=== PATIENT | male | born 1970 | race Caucasian/White ===

== ENCOUNTER 2016-11-30 10:08 | Emergency (ER) | payer OTHER ==
[~2016-11-30 10:08] MED LIST: ERYTHROMYCIN O3.5 GM OD; FLEXERIL10 MG PO; HYDROCODON-ACE1 EAC7 PO; IBUPROFEN PO; MOTRIN400 MG PO; ORUDIS75 M1 PO; VICODIN 5/500 T1 TAB PO
[2016-11-30 10:48] LABS: BASOPHIL% 0.4 % (0-2.5); EOSINOPHIL% 0.4 % (0.0-7.0); LYMPHOCYTE# 1.2 X10e3 (1.0-3.5); LYMPHOCYTE% 18.7 % (17.0-45.0); MEAN CELL VOLUME 86.7 FL (83-96); MEAN CORPUSCULAR HEMOGLOBIN 29.7 PG (28-34); MEAN CORPUSCULAR HGB CONC 34.2 g/dL (30-36); MEAN PLATELET VOLUME 8.3 FL (6.5-11.5); MONOCYTE# 0.3 X10e3 (0-1.0); MONOCYTE% 5.2 % (3.0-12.0); NEUTROPHIL# 4.8 X10e3 (1.5-7.1); NEUTROPHIL% 75.3 % (40-75); PLATELET COUNT 213 X10e3 (140-420); RED BLOOD COUNT 4.73 X10e (3.90-5.60); WHITE BLOOD COUNT 6.4 X10e3 (4.0-10.5)
[2016-11-30 10:50] LABS: DIFF IND NO
[2016-11-30 11:13] LABS: ACETAMINOPHEN <10 ug/mL; ALBUMIN SERUM 3.6 g/dL (3.5-5.0); ALCOHOL BLOOD <5 mg/dL (0); ALKALINE PHOSPHATASE 80 U/L (32-92); ALT (SGPT) 22 U/L (10-40); AST (SGOT) 26 U/L (10-42); BILIRUBIN, DIRECT 0.2 mg/dL (0.0-0.2); BILIRUBIN,INDIRECT 0.8 mg/dL (0.0-0.9); BLOOD UREA NITROGEN 17 mg/dL (9-23); BUN/CREATININE RATIO 21.25; CALCIUM SERUM 8.9 mg/dL (8.4-10.2); CARBON DIOXIDE 28 mmol/L (22-31); CHLORIDE 97 mmol/L (100-111); CREATININE SERUM 0.8 mg/dL (0.6-1.4); GLOM FILT RATE Estimated 106.4 mL/min (>60); GLUCOSE FASTING 107 mg/dL (70-110); POTASSIUM 3.6 mmol/L (3.5-5.1); PROTEIN TOTAL SERUM 7.5 g/dL (6.0-8.3); SALICYLATE <4.0 mg/dL; SODIUM 136 mmol/L (135-145)
[2016-11-30 12:01] LABS: URINE SOURCE CLEAN CATCH
[2016-11-30 12:07] LABS: URINE APPEARANCE CLEAR; URINE BILIRUBIN NEG (NEG); URINE BLOOD NEG (NEG); URINE COLOR YELLOW; URINE GLUCOSE NEG (NEG); URINE KETONE 1+ (NEG); URINE LEUKOCYTE ESTERASE NEG (NEG); URINE NITRATE NEG (NEG); URINE PROTEIN TRACE (NEG); URINE SPECIFIC GRAVITY 1.018 (1.003-1.035)
[2016-11-30 12:11] LABS: CULTURE INDICATED? NO
[2016-11-30 16:33] LABS: AMPHETAMINE NEG (NEG); BARBITURATES NEG (NEG); BENZODIAZEPINES NEG (NEG); COCAINE NEG (NEG); MARIJUANA NEG (NEG); OPIATES POS (NEG); TRICYCLIC ANTIDEPRESSANTS NEG (NEG); U METHADONE NEG (NEG)
== END 2016-11-30 16:10 ==
LOC: CED 10:08
PROVIDERS: Emergency Medicine
DX: F11.23 Opioid dependence with withdrawal (principal); Z88.0 Allergy status to penicillin; Z88.1 Allergy status to other antibiotic agents
CPT/HCPCS: 36415; 80048; 80076; 80307; 81003; 85025; 99285; G0480; J1885; J2060; J2550

== ENCOUNTER 2016-11-30 13:16 | Inpatient (IN) | payer OTHER ==
--- NOTE | ~2016-11-30 | HP ---
Unit #: [id number] #: [id number] Patient: STERLING FENG [id number] [place] [address] [id number] I MR#: [id number] NAME: STERLING FENG. ROOM: 77 Age: 45 Sex: M Admission Date: 11/30/2016 : 1970 Attending Physician: Harpal Yan M.D. Admitting Physician: Harpal Yan M.D. Primary Care Physician: Primary Care Physician No HISTORY AND PHYSICAL HISTORY OF PRESENT ILLNESS Sterling is a 45 year old admitted to [facility] because of his abuse of opioids. PAST MEDICAL HISTORY History of opioid abuse. PAST SURGICAL HISTORY Nothing reported. ALLERGIES Penicillin, codeine, erythromycin. SOCIAL HISTORY Smokes one pack per day. Drinks alcohol on occasion. Admits to history of opioid abuse to include IV drugs. FAMILY HISTORY Medically noncontributory. REVIEW OF SYSTEMS CONSTITUTIONAL: No fever or chills. HEENT: Denies any sore throat, ear pain or runny nose. CARDIOVASCULAR: Denies chest pain, irregular heart rhythm or palpitations. CHEST: Denies shortness of breath or cough. No hemoptysis. GASTROINTESTINAL: Denies nausea, vomiting, diarrhea or chronic constipation. ENDOCRINE: Denies history of increased thirst or urination. No recent significant weight loss or gain. GENITOURINARY: Denies dysuria, frequency, or hematuria. SKIN: Denies any rashes. HEMATOLOGIC: Denies history of increased bleeding or bruising. MUSCULOSKELETAL: Denies any hot, swollen joints. No generalized muscle pain. NEUROLOGIC: Denies problems with vision or speech. No frequent, severe headaches. No numbness, tingling or weakness in any extremities. Denies loss of bladder or bowel control. CURRENT MEDICATIONS Detox protocol. PHYSICAL EXAMINATION GENERAL: Alert, well nourished. No apparent distress. Unit #: [id number] #: [id number] Patient: STERLING FENG VITAL SIGNS: Blood pressure 100/60, heart rate 80, respirations 16, and temperature 98.6. WEIGHT: 130. HEIGHT: 5 feet 9 inches. SKIN: Warm and dry without rash or lesion. HEENT: Normocephalic. TMs not viewed. Oral and nasal passages clear. Conjunctivae clear. PERRLA. EOMs intact. NECK: Supple without lymphadenopathy or thyromegaly. HEART: Regular rate and rhythm without murmur. LUNGS: Clear. ABDOMEN: Soft, nontender. : Not done. EXTREMITIES: No evidence of cyanosis, clubbing or edema. Moves all without focal deficit. NEUROLOGICAL: Grossly within normal limits. Cranial Nerves: II: Visual martinez are intact. III, IV AND : Extraocular movements are intact. Pupils are equal, round and reactive to light. V: Facial sensation is grossly normal. VII: Facial movements and expression are normal. VIII: Auditory acuity grossly intact. IX, X: Uvula is midline. Phonation is normal. XI: Patient shrugs shoulders and turns head normally. XII: Tongue protrudes in the midline. Sensory and Motor Function: Sensory and motor sensation is grossly normal. Motor: moves all extremities well. Coordination: Gait is normal. Deep Tendon Reflexes: Intact. IMPRESSION Psychiatric admission. RECOMMENDATIONS PSYCHIATRIC: Per psychiatrist. MEDICAL: I see no contraindication to participate in this facility's activities. MEDICAL PROGNOSIS Good. MEDICAL CONDITION Stable. Dictated by... Ariadna Madrid P.A.-C. for Kiran Lee/renny TD: 12/01/2016 07:53 JOB #: [id number] Unit #: [id number] #: [id number] Patient: STERLING FENG HISTORY AND PHYSICAL Page 1 of 1 X Ariadna Madrid HISTORY AND PHYSICAL
--- NOTE | ~2016-11-30 | DS ---
Unit #: [id number] #: [id number] Patient: MICHELINE FENG [id number] [facility] [address] [place] [address] [id number] I MR#: [id number] NAME: MICHELINE FENG. ROOM: [facility] Age: 45 Sex: M Admission Date: 11/30/2016 : 1970 Discharge Date: 12/03/2016 Attending Physician: Harpal Yan M.D. Primary Care Physician: Primary Care Physician No DISCHARGE SUMMARY REASON FOR ADMISSION Heroin withdrawal. DIAGNOSTIC STUDIES LABORATORY RESULTS: UDS positive for opioids. HOSPITAL COURSE The patient was admitted to inpatient unit on 11/30/2016 and discharged on 12/03/2016. The patient was treated on the inpatient unit with detox protocol, detox monitoring, expressive therapy, psychoeducation, psychotherapy, and chemical dependency group. The patient was responsive to treatment. Subsequently, the patient was discharged with a plan to follow up in outpatient program. DISCHARGE MEDICATIONS Celexa 20 mg daily for depression. DISCHARGE DIAGNOSES Psychiatric: Opioid use disorder, severe, F11.20; mood disorder, not otherwise specified, F32.9. Secondary diagnosis: Deferred. Medical diagnosis: None. Stressors: Psychosocial stressors. DISCHARGE INSTRUCTIONS The patient to follow up in outpatient clinic as per social services coordinator. CONDITION ON DISCHARGE The patient was pleasant and cooperative. Denied any psychotic symptom or any suicidal ideation. PROGNOSIS Guarded. DIET AND ACTIVITY As tolerated. Dictated by... Harpal Yan M.D. Unit #: [id number] #: [id number] Patient: MICHELINE FENG SZC/modl TD: 12/03/2016 17:28 JOB #: [id number] DISCHARGE SUMMARY Page 1 of 1 X Harpal Yan MD X DISCHARGE SUMMARY
--- NOTE | ~2016-11-30 | PA ---
Unit #: [id number] #: [id number] Patient: MICHELINE FENG [id number] [facility] [address] [place] [address] [id number] I MR#: [id number] NAME: MICHELINE FENG. ROOM: P177 Age: 45 Sex: M Admission Date: 11/30/2016 : 1970 Date of Assessment: 12/01/2016 Attending Physician: Harpal Yan M.D. Admitting Physician: Harpal Yan M.D. Primary Care Physician: Primary Care Physician No PSYCHIATRIC ASSESSMENT INFORMANTS The patient reliability, fair informant and chart reliability, good. CHIEF COMPLAINT Heroin withdrawal and depression. HISTORY OF PRESENT ILLNESS Mr. Katz is a 45-year-old male, presented with opioid withdrawal and depression. The patient presented to the emergency room complaining of withdrawal symptoms. The patient reported wanting help, reported not used in the last 2 days. Feeling sad, depressed, having anxiety. Reported experiencing active withdrawal symptoms. The patient denied any suicidal or homicidal ideation, but feeling of hopelessness and worthlessness. The patient reported tobacco use, age of onset 14; alcohol, age of onset 17; and opioid, age of onset 44. The patient reports that he has not used any in the last 2 days. Reported history of blackouts, withdrawal symptom, and IV drug abuse. No history of any HIV or hepatitis. The patient reported muscle cramps, irritability, nervousness, restlessness, sleep problems, and tremors. Needing inpatient admission at this time for psychiatric stabilization. PAST PSYCHIATRIC HISTORY Remarkable for history of previous treatment, details unknown at this time. FAMILY HISTORY AND SOCIAL HISTORY The patient has a poor support system. Family psychiatric illness is remarkable for history of alcohol abuse in the family, but details unknown at this time. No known history of any legal problems or any abuse, but according to the intake report history of trespassing, no court date. MEDICAL HISTORY Unremarkable for any chronic medical illness. Musculoskeletal; muscle strength and tone, no atrophy or abnormal movement. Gait normal. MEDICATION HISTORY None. ALLERGIES No known drug allergies. SUBSTANCE ABUSE HISTORY Please see above. Unit #: [id number] #: [id number] Patient: MICHELINE FENG REVIEW OF SYSTEMS HEENT: Eyes, clear. Ears, nose, mouth, and throat; clear. CARDIOVASCULAR: Unremarkable. RESPIRATORY: Unremarkable. GI: Unremarkable. : Unremarkable. SKIN: Unremarkable. LYMPH NODE: Unremarkable. NEUROLOGIC: Unremarkable. ENDOCRINE: Unremarkable. HEMATOLOGIC: Unremarkable. ALLERGIC/IMMUNOLOGIC: Unremarkable. MUSCULOSKELETAL: Muscle strength and tone, no atrophy or abnormal movement. Gait normal. MENTAL STATUS EXAMINATION CONSTITUTIONAL: Measurement of vital signs; temperature 98.6, heart rate 84, respiratory rate 20, oxygen saturation 100%, and blood pressure 122/81. Height 5 feet 9 inches and weight 130 pounds. GENERAL APPEARANCE: The patient dressed casually. The patient did not show any facial deformity. MUSCULOSKELETAL: Please see above. PSYCHIATRIC EXAMINATION Description of speech; regular rate, normal volume, normal articulation, and coherent. Description of thought process, goal directed. Description of association, intact. Description of abnormal psychotic thinking; the patient denied any hallucination or delusions, but mood lability, sad, depressed, withdrawn, having withdrawal symptoms, but denied any suicidal ideation. Description of the patient's judgment: Concerning everyday activity, poor. Social situation, poor. Concerning psychiatric condition, poor. Complete mental status examination; oriented in time, place, and person. Recent and remote memory, fair. Attention span and concentration, fair. Language, able to name object and repeat phrases. Fund of knowledge, aware of current event and passive vocabulary intact. Mood and affect, sad and dysphoric. Insight and judgment, fair to poor. ASSETS AND LIABILITIES Assets, the patient is articulate and able to take care of his ADL. Liability, history of substance abuse and depression. ADMITTING DIAGNOSES Psychiatric: Opioid use disorder, severe, F11.20 and major depressive disorder, recurrent, severe, F33.2. Secondary diagnosis: Deferred. Medical diagnosis: None. Stressors: Psychosocial stressors. PSYCHIATRIC PLAN AND TREATMENT GOAL AND DISCHARGE PLAN 1. Advised to admit the patient on the inpatient unit. Provide safe, supportive, and structured environment. 2. Ordered labs; CBC, CMP, UA, and UDS. 3. Precaution for self-harm, detox protocol, and detox monitoring. Unit #: [id number] #: [id number] Patient: MICHELINE FENG 4. The patient to attend all the programing on the inpatient unit, group therapy, individual therapy, and chemical dependency group. TREATMENT GOAL To attain euthymic mood, gain insight into his problem, and learn coping skills. DISCHARGE PLAN Plan to stabilize the patient and consider followup in outpatient program. ESTIMATED LENGTH OF STAY 5 to 10 days. Dictated by... Kiran Robles/jonathon TD: 12/01/2016 16:13 JOB #: [id number] PSYCHIATRIC ASSESSMENT Page 1 of 1 X Harpal Yan MD X PSYCHIATRIC ASSESSMENT
--- NOTE | ~2016-11-30 | PN ---
Unit #: [id number] #: [id number] Patient: MICHELINE FENG [id number] [facility] [address] [place] [address] [id number] I MR#: [id number] NAME: MICHELINE FENG. ROOM: [facility] Age: 45 Sex: M Admission Date: 11/30/2016 : 1970 Attending Physician: Harpal Yan M.D. Admitting Physician: Harpal Yan M.D. Primary Care Physician: Primary Care Physician Jacquelin [facility] PROGRESS NOTES DATE 12/02/2016 DISCUSSION Mr. Katz is a 45-year-old male seen on 12/02/2016. Patient interviewed. Chart reviewed. Obtained information from nursing staff. Patient compliant, cooperative. Mood sad, dysphoric. Patient was able to contract for safety but reports that he needs to go. Vital signs 98.4, 69, 16, 121/85. Patient did not show any aggression. Mood sad, dysphoric, irritable. Compliant with medication. Complete review of system unremarkable. MENTAL STATUS EXAMINATION General appearance, patient dressed casually. Attention span, concentration poor. Oriented in place and person. Mood and affect labile. Speech monotone. Thought process concrete. Patient denied any thoughts of harming self or others. Recent and remote memory poor. Insight and judgement poor. DIAGNOSES 1. Opiate use disorder, severe. 2. Mood disorder NOS. ASSESSMENT/PLAN Advised to continue with current medication and therapeutic protocol. If needed, consider further adjustment of medication. Dictated by... Kiran Robles/jaxon TD: 12/03/2016 16:30 JOB #: [id number] Unit #: [id number] #: [id number] Patient: MICHELINE FENG PEAKRISTI PROGRESS NOTES Page 1 of 1 X Harpal Yan MD PROGRESS NOTE
--- NOTE | ~2016-11-30 | PN ---
Unit #: [id number] #: [id number] Patient: MICHELINE FENG [id number] [facility] [address] [place] [address] [id number] I MR#: [id number] NAME: MICHELINE FENG. ROOM: [facility] Age: 45 Sex: M Admission Date: 11/30/2016 : 1970 Attending Physician: Harpal Yan M.D. Admitting Physician: Harpal Yan M.D. Primary Care Physician: Primary Care Physician Jacquelin ANGULO PROGRESS NOTES DATE OF SERVICE: 12/01/2016 DISCUSSION Mr. Katz is a 45-year-old male, seen on 12/01/2016. The patient continues to be withdrawn, sad, depressed, flat affect, and anxious. The patient's vital signs; temperature 98.8, pulse 88, respirations 20, oxygen saturation 100%, blood pressure 124/78. REVIEW OF SYSTEMS Complete review of systems unremarkable. MENTAL STATUS EXAMINATION General appearance, the patient dressed casually. Attention span and concentration, fair. Oriented in place and person. Mood and affect, sad and depressed. Speech, monotone. Thought process, concrete. The patient denied any thoughts of harming self or others, but mood sad and depressed. Recent and remote memory, poor. Insight and judgment, poor. DIAGNOSES 1. Opioid use disorder, severe. 2. Mood disorder, not otherwise specified. ASSESSMENT AND PLAN Advised to continue with detox protocol with a plan to add Celexa 20 mg daily. If needed, consider further adjustment of medication. Dictated by... Kiran Robles/jonathon TD: 12/02/2016 23:00 JOB #: [id number] Unit #: [id number] #: [id number] Patient: MICHELINE FENG [facility] PROGRESS NOTES Page 1 of 1 X Harpal Yan MD PROGRESS NOTE
[2016-12-02 09:51] LABS: URINE APPEARANCE CLEAR; URINE BILIRUBIN NEG (NEG); URINE BLOOD NEG (NEG); URINE COLOR YELLOW; URINE GLUCOSE NEG (NEG); URINE KETONE NEG (NEG); URINE LEUKOCYTE ESTERASE NEG (NEG); URINE NITRATE NEG (NEG); URINE PROTEIN NEG (NEG); URINE SPECIFIC GRAVITY 1.011 (1.003-1.035)
[2016-12-02 10:01] LABS: AMPHETAMINE NEG (NEG); BARBITURATES NEG (NEG); BENZODIAZEPINES NEG (NEG); COCAINE NEG (NEG); MARIJUANA NEG (NEG); OPIATES NEG (NEG); TRICYCLIC ANTIDEPRESSANTS NEG (NEG); U METHADONE NEG (NEG)
== END 2016-12-03 09:37 | DRG 885 ==
LOC: P1E 17:43
PROVIDERS: Psychiatry & Neurology Psychiatry
PROC: HZ2ZZZZ Detoxification Services for Substance Abuse Treatment (ICD-10-PCS; principal; 2016-11-30)
DX: F39 Unspecified mood [affective] disorder (principal); F11.24 Opioid dependence with opioid-induced mood disorder; Z88.0 Allergy status to penicillin; Z88.1 Allergy status to other antibiotic agents; Z88.5 Allergy status to narcotic agent; F17.210 Nicotine dependence, cigarettes, uncomplicated
CPT/HCPCS: 80307; 81003; 86592; 87806

== ENCOUNTER 2017-01-09 11:21 | Emergency (ER) | payer OTHER ==
[~2017-01-09] VITALS: Ht 175.3 cm; Wt 59.0 kg
== END 2017-01-09 11:22 | disposition left against medical advice (07) ==
LOC: CED 11:21
DX: Z53.21 Procedure and treatment not carried out due to patient leaving prior to being seen by health care provider (principal)

== ENCOUNTER 2017-01-15 20:00 | Inpatient (IN) | payer OTHER ==
[~2017-01-15] VITALS: Ht 175.3 cm; Wt 59.0 kg
--- NOTE | ~2017-01-15 | HP ---
Unit #: [id number] #: [id number] Patient: MICHELINE FENG [id number] [facility] [address] [place] [address] [id number] MR#: [id number] NAME: MICHELINE FENG. ROOM: [facility] Age: 46 Sex: M Admission Date: 01/15/2017 : 1970 Attending Physician: Harpal Yan M.D. Admitting Physician: Harpal Yan M.D. Primary Care Physician: Primary Care Physician No HISTORY AND PHYSICAL HISTORY OF PRESENT ILLNESS The patient is a 46-year-old man who has been [facility] to [facility]. The patient has been admitted to this facility for the same. PAST MEDICAL HISTORY 1. Opiate abuse. 2. Heroin abuse. PAST SURGICAL HISTORY None. ALLERGIES Penicillin, codeine, and erythromycin. HOME MEDICATIONS None. FAMILY HISTORY Medically noncontributory. SOCIAL HISTORY Tobaccoism and rare alcohol use. She does admit to opioid use including IV heroin. REVIEW OF SYSTEMS CONSTITUTIONAL: Denies fever or chills. HEENT: Denies sore throat, ear pain, or runny nose. CARDIOVASCULAR: Denies chest pain, irregular heart rhythm, palpitations. CHEST: Denies shortness of breath or cough. No hemoptysis. GI: Denies nausea, vomiting, diarrhea, or chronic constipation. ENDOCRINE: Denies increased thirst or urination. Denies any recent weight loss or gain. : Denies dysuria, frequency, or hematuria. SKIN: Denies any rashes. HEMATOLOGIC: Denies any increased bleeding or bruising. MUSCULOSKELETAL: Denies hot, swollen joints. No generalized pain. NEUROLOGIC: Denies problems with speech, vision, numbness, or tingling. Denies loss of bowel or bladder control. PHYSICAL EXAMINATION GENERAL: The patient is awake, alert, no acute distress. VITAL SIGNS: Temperature 97.9, heart rate 90, respirations 16, blood Unit #: [id number] #: [id number] Patient: MICHELINE FENG pressure 125/79. He is 5 feet 9 inches. Weight: 130 pounds. HEENT: Head is atraumatic, normocephalic. Pupils are equal, round, and reactive. Extraocular movements are intact. No drainage from ears or nose. NECK: Supple. Trachea is midline. HEART: Regular rate and rhythm. LUNGS: Clear. ABDOMEN: Soft, nontender, nondistended. : Not done. SKIN: Warm, dry without unusual rashes or lesions. EXTREMITIES: No clubbing, cyanosis, or edema. NEUROLOGIC: Cranial nerves II through XII intact. No focal deficits. Sensory/motor function: Grossly normal. Moves all extremities well. Coordination: Gait normal. Deep tendon reflexes intact. IMPRESSION Psychiatric admission. RECOMMENDATIONS PSYCHIATRIC: Per psychiatrist. MEDICAL: I see no contraindication to participate in this facility activities. MEDICAL PROGNOSIS Fair. MEDICAL CONDITION Stable. Dictated by... Crow Colin TD: 01/16/2017 13:23 JOB #: [id number] HISTORY AND PHYSICAL Page 1 of 1 X Yaquelin Cosby APRN X HISTORY AND PHYSICAL
--- NOTE | ~2017-01-15 | PA ---
Unit #: [id number] #: [id number] Patient: STERLING FENG [id number] [facility] [address] [place] [address] [id number] I MR#: [id number] NAME: STERLING FENG. ROOM: 77 Age: 46 Sex: M Admission Date: 01/15/2017 : 1970 Date of Assessment: Attending Physician: Harpal Yan M.D. Admitting Physician: Harpal Yan M.D. Primary Care Physician: Primary Care Physician No PSYCHIATRIC ASSESSMENT INFORMANTS The patient reliability, fair informant; chart reliability, good. CHIEF COMPLAINT Addiction withdrawals. HISTORY OF PRESENT ILLNESS Mr. Sterling Feng is a 46-year-old male, presented with opioid abuse and opioid withdrawals. The patient also reported using sedative hypnotics such as Xanax. The patient reports that he is feeling irritable, anxious. The patient reports that he wanted to quit drugs. He reports that he wants to get his life back together. The patient reports that he uses 2 to 3 g of IV heroin daily. The patient reports that he used couple of pints today. The patient reports that he uses 0.25 g of IV meth daily. The patient reports that he last used was yesterday. The patient also reported taking 2 to 3 mg of Xanax. The patient reported he is getting his relationship with his family. The patient reports he is homeless. Reports a history of comma due to withdrawal from heroin. Denied any suicidal or homicidal ideation, but sad, depressed, irritable mood. No psychotic symptom. Scored 11 on CIWA score. Needing inpatient admission at this time for psychiatric stabilization. PAST PSYCHIATRIC HISTORY Remarkable for history of [facility]. FAMILY HISTORY AND SOCIAL HISTORY The patient is currently homeless, poor support system. Family psychiatric illness unknown at this time. No legal charges, but reported history of legal problem in the past such as for trespassing. MEDICAL HISTORY Unremarkable for any chronic medical illness. Musculoskeletal; muscle strength and tone, no atrophy or abnormal movement. Gait normal. MEDICATION HISTORY None. ALLERGIES Penicillin, codeine, and erythromycin. SUBSTANCE ABUSE HISTORY Please see above. The patient reported tobacco use, age of onset 10; Unit #: [id number] #: [id number] Patient: STERLING FENG marijuana, age of onset 10; crack cocaine, 28; LSD, 18; opioid, 40; amphetamine, 46; and benzodiazepine, 28. The patient reported longest period of sobriety, 5 years, last period of sobriety, 05/15/2016. The patient reported history of IV drug abuse, history of hepatitis, withdrawal symptom. No blackout. Currently reporting muscle cramping, irritability, nervousness, restlessness, sleep problem, tremors. REVIEW OF SYSTEMS HEENT: Eyes, clear. Ears, nose, mouth, and throat; clear. CARDIOVASCULAR: Unremarkable. RESPIRATORY: Unremarkable. GI: Unremarkable. : Unremarkable. SKIN: Unremarkable. LYMPH NODE: Unremarkable. NEUROLOGIC: Unremarkable. ENDOCRINE: Unremarkable. HEMATOLOGIC: Unremarkable. ALLERGIC/IMMUNOLOGIC: Unremarkable. MUSCULOSKELETAL: Muscle strength and tone, no atrophy or abnormal movement. Gait normal. MENTAL STATUS EXAMINATION CONSTITUTIONAL: Measurement of vital signs; temperature 97.9, pulse 90, respirations 18, oxygen saturation 100%, and blood pressure 125/79. Height 5 feet 9 inches, weight is 130 pounds. GENERAL APPEARANCE: The patient dressed casually. The patient did not show any facial deformity. MUSCULOSKELETAL: Please see above. PSYCHIATRIC EXAMINATION Description of speech; slow in volume and rate. Description of thought process, circumstantial. Description of association, intact. Description of abnormal psychotic thinking; guarded, paranoid, mood lability, irritability, substance abuse. Denied any suicidal or homicidal ideation. Denied any psychotic symptom. Description of the patient's judgment, concerning everyday activity, poor. Social situation, poor. Concerning psychiatric condition, poor. Complete mental status examination; oriented in time, place, and person. Recent and remote memory, fair. Attention span and concentration, fair. Language, able to name object and repeat phrases. Fund of knowledge, aware of current event and passive vocabulary intact. Mood and affect, sad and dysphoric. Insight and judgment, fair to poor. ASSETS AND LIABILITIES Assets, the patient is articulate and able to take care of his ADL. Liability, history of substance abuse. ADMITTING DIAGNOSES Psychiatric: Opiate use disorder, severe, F11.20; sedative hypnotic use disorder, severe, F13.20; mood disorder, not otherwise specified, F32.9. Secondary diagnosis: Deferred. Medical diagnosis: None. Stressors: Psychosocial stressor. Unit #: [id number] #: [id number] Patient: STERLING FENG PSYCHIATRIC PLAN AND TREATMENT GOAL AND DISCHARGE PLAN 1. Advised to admit the patient on the inpatient unit. Provide safe, supportive, and structured environment. 2. Ordered labs; CBC, CMP, UA, and UDS. 3. Precaution for aggression, detox protocol, detox monitoring. If needed consider, medication for mood symptom. 4. Treatment goal; to attain euthymic mood, gain insight into his problem, and learn coping skills. The patient to attend all the programing on the inpatient unit including chemical dependency group. DISCHARGE PLAN Plan to stabilize the patient and consider followup in outpatient program. ESTIMATED LENGTH OF STAY 5 days. Dictated by... Kiran Robles/jonathon TD: 01/16/2017 11:15 JOB #: [id number] PSYCHIATRIC ASSESSMENT Page 1 of 1 X Harpal Yan MD X PSYCHIATRIC ASSESSMENT
--- NOTE | ~2017-01-15 | DS ---
Unit #: [id number] #: [id number] Patient: MICHELINE FENG [id number] [facility] [address] [place] [address] [id number] MR#: [id number] NAME: MICHELINE FENG. ROOM: [facility] Age: 46 Sex: M Admission Date: 01/15/2017 : 1970 Discharge Date: Attending Physician: Harpal Yan M.D. Primary Care Physician: Primary Care Physician No DISCHARGE SUMMARY REASON FOR ADMISSION Opioid abuse. HOSPITAL COURSE The patient was admitted to inpatient unit on 01/15/2017 and discharged on 01/17/2017. The patient was treated with chemical dependency group, expressive therapy, psychoeducation, and psychotherapy. The patient requested for discharge. Still having withdrawal symptoms. DISCHARGE MEDICATIONS Celexa 20 mg daily. At the time of discharge, the patient denied any suicidal or homicidal ideation. Denied any psychotic symptoms. DISCHARGE DIAGNOSES Psychiatric: Opioid use disorder, severe, F11.20; sedative hypnotic use disorder, severe, F13.20; and mood disorder, not otherwise specified, F32.9. Secondary diagnosis: Deferred. Medical diagnosis: None. Stressors: Psychosocial stressors. DISCHARGE INSTRUCTIONS The patient to follow up in outpatient clinic as per social security specialist. CONDITION ON DISCHARGE The patient was pleasant and cooperative. Denied any psychotic symptoms or any suicidal ideation. PROGNOSIS Guarded. DIET AND ACTIVITY As tolerated. Dictated by... Harpal Yan M.D. Unit #: [id number] #: [id number] Patient: MICHELINE FENG SZC/modl TD: 01/17/2017 13:46 JOB #: [id number] DISCHARGE SUMMARY Page 1 of 1 X Harpal Yan MD X DISCHARGE SUMMARY
--- NOTE | ~2017-01-15 | PN ---
Unit #: [id number] #: [id number] Patient: STERLING RODRIGUEZ [id number] [facility] [address] [place] [address] [id number] MR#: [id number] NAME: STERLING RODRIGUEZ. ROOM: [facility] Age: 46 Sex: M Admission Date: 01/15/2017 : 1970 Attending Physician: Harpal Yan M.D. Admitting Physician: Harpal Yan M.D. Primary Care Physician: Primary Care Physician Jacquelin ANGULO PROGRESS NOTES DATE 01/16/2017 DISCUSSION Mr. Sterling Rodriguez is a 46-year-old male seen on 01/16/2017. Patient interviewed. Chart reviewed. Obtained information from nursing staff. Patient's mood was sad, dysphoric, irritable. Patient was somewhat shaking, anxious. Complete review of system unremarkable. MENTAL STATUS EXAMINATION General appearance, patient dressed casually. Attention span, concentration fair. Oriented in place and person. Mood and affect labile. Speech monotone. Thought process concrete. Patient denied any thoughts of harming self or others. Recent and remote memory poor. Insight and judgement poor. DIAGNOSES 1. Opiate use disorder, severe, F11.20. 2. Sedative/hypnotic use disorder, severe, F13.20. 3. Mood disorder NOS, F32.9. ASSESSMENT/PLAN Advised to continue with current medication and therapeutic protocol. If needed, consider further adjustment of medication. Dictated by... Kiran Robles/jaxon TD: 01/16/2017 21:45 JOB #: [id number] Unit #: [id number] #: [id number] Patient: STERLING RODRIGUEZ KEV PROGRESS NOTES Page 1 of 1 X Harpal Yan MD X PROGRESS NOTE
[2017-01-16 11:28] LABS: BASOPHIL# 0.1 X10e3 (0-0.3); BASOPHIL% 0.9 % (0-2.5); EOSINOPHIL# 0.4 X10e3 (0-0.7); EOSINOPHIL% 4.6 % (0.0-7.0); HEMATOCRIT 41.6 % (38.0-50.0); HEMOGLOBIN 14.2 gm/dL (13.0-16.0); LYMPHOCYTE# 2.4 X10e3 (1.0-3.5); MEAN CELL VOLUME 88.6 FL (83-96); MEAN CORPUSCULAR HEMOGLOBIN 30.3 PG (28-34); MEAN CORPUSCULAR HGB CONC 34.2 g/dL (30-36); MONOCYTE# 0.7 X10e3 (0-1.0); MONOCYTE% 8.6 % (3.0-12.0); NEUTROPHIL# 4.5 X10e3 (1.5-7.1); NEUTROPHIL% 55.9 % (40-75); PLATELET COUNT 222 X10e3 (140-420); RED BLOOD COUNT 4.69 X10e (3.90-5.60); RED CELL DISTRIBUTION WIDTH 13.5 % (11.0-15.5); WHITE BLOOD COUNT 8.1 X10e3 (4.0-10.5)
[2017-01-16 11:31] LABS: DIFF IND NO
[2017-01-16 11:51] LABS: ALBUMIN SERUM 3.3 g/dL (3.5-5.0); BILIRUBIN,TOTAL 0.5 mg/dL (0.2-2.0); BUN/CREATININE RATIO 14.44; CALCIUM SERUM 9.1 mg/dL (8.4-10.2); CREATININE SERUM 0.9 mg/dL (0.6-1.4); GLOM FILT RATE Estimated 100.6 mL/min (>60); POTASSIUM 4.2 mmol/L (3.5-5.1); PROTEIN TOTAL SERUM 6.7 g/dL (6.0-8.3)
== END 2017-01-17 14:45 | disposition home or self-care (01) | DRG 897 ==
LOC: P1E 22:02
PROVIDERS: Psychiatry & Neurology Psychiatry
PROC: HZ2ZZZZ Detoxification Services for Substance Abuse Treatment (ICD-10-PCS; principal; 2017-01-15)
DX: F11.20 Opioid dependence, uncomplicated (principal); F13.20 Sedative, hypnotic or anxiolytic dependence, uncomplicated; F39 Unspecified mood [affective] disorder
CPT/HCPCS: 80053; 85025